=== PATIENT | male | born 1950 | race Hispanic/Latino ===

== ENCOUNTER 2021-05-25 01:45 | Inpatient (IN) | payer OTHER ==
[~2021-05-25] VITALS: Ht 180.3 cm; Wt 93.9 kg
[2021-05-25] MEDS ORDERED: SODIUM CHLORIDE 0.9% 1000ML 1,000 ML IV STA (01:54)
[2021-05-25] MEDS ORDERED: ONDANSETRON HCL INJ 2MG/ML 2ML 2 MG/ML VIAL IV STA (01:54)
[2021-05-25 02:59] LABS: BASOPHILS % 0.5 % (0.0-1.0); EOSINOPHILS # (AUTO) 0.1 (0.0-0.4); EOSINOPHILS % 0.7 % (0.0-6.0); HEMATOCRIT 37.4 % (38.2-49.6); HEMOGLOBIN 11.9 g/dL (14.0-18.0); LYMPHOCYTES # (AUTO) 0.6 (1.0-3.2); LYMPHOCYTES % 7.1 % (18.0-39.1); MEAN CORPUSCULAR HEMOGLOBIN 27.5 pg (28-32); MEAN CORPUSCULAR HGB CONC 31.8 g/dL (31-35); MEAN CORPUSCULAR VOLUME 86.6 fL (81-99); MONOCYTES # (AUTO) 0.5 (0.2-0.8); MONOCYTES % 5.4 % (4.4-11.3); NEUTROPHILS # (AUTO) 7.3 (2.1-6.9); NEUTROPHILS % 85.8 % (38.7-80.0); PLATELET COUNT 199 x10e3/uL (140-360); RED BLOOD COUNT 4.32 x10e6/uL (4.3-5.7); RED CELL DISTRIBUTION WIDTH 14.7 % (11.7-14.4)
[2021-05-25 03:17] LABS: ALBUMIN 3.7 g/dL (3.5-5.0); ALBUMIN/GLOBULIN RATIO 0.9 (0.8-2.0); ANION GAP 21.4 mmol/L (8-16); CALCIUM 10.2 mg/dL (8.4-10.2); CREATININE, SERUM 0.83 mg/dL (0.72-1.25); POTASSIUM 4.4 mmol/L (3.5-5.1)
[2021-05-25] MEDS ORDERED: MORPHINE SULFATE INJ 2 MG/ML SYR IV STA (03:17)
[2021-05-25 03:23] LABS: CREATINE KINASE MB 1.2 ng/mL (0-5.0)
[2021-05-25 03:40] LABS: CLARITY,URINE CLEAR (CLEAR); COLOR,URINE AMBER (YELLOW); KETONES,URINE >=160 (NEGATIVE); LEUKOCYTE ESTERASE ,URINE NEGATIVE (NEGATIVE); NITRITE,URINE NEGATIVE (NEGATIVE); PROTEIN,URINE DIPSTICK NEGATIVE (NEGATIVE); URINE UROBILINOGEN 1 mg/dL (0.2 - 1)
[2021-05-25 03:46] LABS: BACTERIA,URINE FEW /HPF; EPITHELIAL CELLS,URINE FEW /LPF; MUCUS,URINE FEW (RARE); RBC,URINE 0-5 /HPF (0-5)
[2021-05-25] MEDS ORDERED: D5.45%NS/KCL 20MEQ 1,000 ML IV SCH (04:30)
[2021-05-25] MEDS ORDERED: MORPHINE SULFATE INJ 2 MG/ML SYR IV PRN (04:30)
[2021-05-25] MEDS ORDERED: LEVOFLOXACIN 500MG/D5W 100ML IV SCH (04:30)
[2021-05-25] MEDS ORDERED: SODIUM CHLORIDE 0.9% 50ML 50 ML ONE ×3 (07:22→14:50)
[2021-05-25] MEDS ORDERED: IOPAMIDOL 370 MG/ML 200 ML INFUS..BTL INJ ONE (07:22)
[2021-05-25 08:55] VITALS: BP 188/65
[2021-05-25] MEDS ORDERED: ACETAMINOPHEN 1000 MG/100 ML IV PRN (09:00)
[2021-05-25] MEDS ORDERED: DEXTROSE 50% SYRINGE 50 ML IV PRN (09:00)
[2021-05-25] MEDS ORDERED: HYDRALAZINE HCL 20 MG/ML VIAL IV PRN (09:15)
[2021-05-25 09:21] VITALS: BP 188/65
[2021-05-25] MEDS ORDERED: INSULIN GLARGINE 100 UNITS/ML VIAL SQ ONE (09:30)
[2021-05-25] MEDS ORDERED: PIPERACILLIN/TAZOBACTAM 3.375 GM in SODIUM CHLORIDE 0.9% 50ML 50 ML IV SCH (10:00)
[2021-05-25] MEDS: ONDANSETRON HCL INJ 2MG/ML 2ML 2 MG/ML VIAL IV PRN ×2 (10:04→17:53)
[2021-05-25] MEDS: MORPHINE SULFATE INJ 4 MG/ML INJ 1ML IV PRN ×2 (10:04→17:53)
[2021-05-25] MEDS: SODIUM BICARBONATE 8.4% 50 ML in SODIUM CHLORIDE 0.45% 1,000 ML IV SCH (10:05)
[2021-05-25 11:41] VITALS: BP 159/66
[2021-05-25] MEDS: INSULIN LISPRO 100 UNIT/1 ML 3ML VIAL SQ SCH ×2 (12:00→16:41)
[2021-05-25] MEDS: PIPERACILLIN/TAZOBACTAM 3.375 GM in SODIUM CHLORIDE 0.9% 50ML 50 ML IV SCH ×2 (13:54→20:36)
[2021-05-25] MEDS ORDERED: GADOBENATE DIMEGLUMINE 0 ML IV ONE (14:00)
[2021-05-25] MEDS ORDERED: GADOBENATE DIMEGLUMINE 1 ML IV ONE (14:50)
[2021-05-25] MEDS ORDERED: AMLODIPINE BESYL5 MG PO (14:55)
[2021-05-25] MEDS ORDERED: BASAGLAR K100 UNIT/1 SQ (14:55)
[2021-05-25] MEDS ORDERED: ATORVASTATIN CA40 MG PO (14:55)
[2021-05-25] MEDS ORDERED: ASPIRIN EC81 MG PO (14:55)
[2021-05-25] MEDS ORDERED: METFORMIN HCL500 MG PO (15:05)
[2021-05-25] MEDS ORDERED: FISH OIL 1,0001 EA10 PO (15:05)
[2021-05-25] MEDS ORDERED: NOVOLOG MI100 UNIT/1 SC (15:05)
[2021-05-25] MEDS ORDERED: CARVEDILOL12.5 MG PO (15:05)
[2021-05-25] MEDS ORDERED: FINASTERIDE5 MG PO (15:05)
[2021-05-25] MEDS ORDERED: PROTONIX20 MG PO (15:06)
[2021-05-25] MEDS ORDERED: SERTRALINE HCL100 MG PO (15:14)
[2021-05-25] MEDS ORDERED: DIOVAN80 MG PO (15:14)
[2021-05-25] MEDS ORDERED: CALTRATE+D3 PL1 EACH PO (15:14)
[2021-05-25] MEDS ORDERED: VITAMIN B12 PO (15:14)
[2021-05-25] MEDS ORDERED: FLOMAX0.4 MG PO (15:14)
[2021-05-25] MEDS ORDERED: PIOGLITAZONE HC45 MG PO (15:14)
[2021-05-25 16:25] VITALS: BP 181/74
[2021-05-25 20:00] VITALS: BP 152/64
[2021-05-25] MEDS: INSULIN GLARGINE 100 UNITS/ML VIAL SQ SCH (20:39)
[2021-05-25 21:22] VITALS: BP 152/64
[2021-05-26] VITALS (8 sets, daily range): BP systolic 122–163; BP diastolic 59–79
[2021-05-26] MEDS: SODIUM BICARBONATE 8.4% 50 ML in SODIUM CHLORIDE 0.45% 1,000 ML IV SCH ×3 (00:07→16:32)
[2021-05-26] MEDS: MORPHINE SULFATE INJ 4 MG/ML INJ 1ML IV PRN ×3 (00:08→10:05)
[2021-05-26] MEDS: INSULIN LISPRO 100 UNIT/1 ML 3ML VIAL SQ SCH ×4 (00:09→18:12)
[2021-05-26] MEDS: PIPERACILLIN/TAZOBACTAM 3.375 GM in SODIUM CHLORIDE 0.9% 50ML 50 ML IV SCH ×4 (01:53→20:22)
[2021-05-26 05:21] LABS: BASOPHILS % 0.3 % (0.0-1.0); EOSINOPHILS % 0.2 % (0.0-6.0); HEMATOCRIT 37.3 % (38.2-49.6); HEMOGLOBIN 11.7 g/dL (14.0-18.0); LYMPHOCYTES # (AUTO) 0.8 (1.0-3.2); LYMPHOCYTES % 8.7 % (18.0-39.1); MEAN CORPUSCULAR HEMOGLOBIN 27.6 pg (28-32); MEAN CORPUSCULAR HGB CONC 31.4 g/dL (31-35); MONOCYTES # (AUTO) 0.9 (0.2-0.8); MONOCYTES % 9.8 % (4.4-11.3); NEUTROPHILS # (AUTO) 7.5 (2.1-6.9); NEUTROPHILS % 80.5 % (38.7-80.0); PLATELET COUNT 198 x10e3/uL (140-360); RED BLOOD COUNT 4.24 x10e6/uL (4.3-5.7); RED CELL DISTRIBUTION WIDTH 15.4 % (11.7-14.4)
[2021-05-26 06:04] LABS: ALBUMIN 3.2 g/dL (3.5-5.0); ALBUMIN/GLOBULIN RATIO 0.8 (0.8-2.0); ANION GAP 19.1 mmol/L (8-16); CALCIUM 9.9 mg/dL (8.4-10.2); CREATININE, SERUM 0.79 mg/dL (0.72-1.25); MAGNESIUM 1.7 MG/DL (1.3-2.1); PHOSPHORUS 2.1 MG/DL (2.3-4.7); POTASSIUM 4.1 mmol/L (3.5-5.1)
[2021-05-26 06:50] LABS: THYROID STIMULATING HORMONE 0.348 uIU/mL (0.350-4.940)
[2021-05-26] MEDS: SERTRALINE HCL 100 MG TAB PO SCH (08:29)
[2021-05-26] MEDS: CARVEDILOL 12.5 MG TAB PO SCH ×2 (09:57→16:02)
[2021-05-26] MEDS: AMLODIPINE BESYLATE 5 MG TAB PO SCH (09:57)
[2021-05-26] MEDS: FINASTERIDE 5 MG TAB PO SCH (09:57)
[2021-05-26] MEDS: VALSARTAN 160 MG TAB PO SCH (09:57)
[2021-05-26] MEDS: TAMSULOSIN HCL 0.4 MG CAP PO SCH (09:57)
[2021-05-26] MEDS: ONDANSETRON HCL INJ 2MG/ML 2ML 2 MG/ML VIAL IV PRN (10:05)
[2021-05-26 17:58] LABS: INR 0.93
[2021-05-26] MEDS: INSULIN GLARGINE 100 UNITS/ML VIAL SQ SCH (21:00)
[2021-05-26] MEDS ORDERED: SODIUM BICARBONATE 8.4% 50 ML in SODIUM CHLORIDE 0.45% 1,000 ML IV SCH (22:30)
[2021-05-27] VITALS (7 sets, daily range): BP systolic 116–143; BP diastolic 51–64
[2021-05-27] MEDS: PIPERACILLIN/TAZOBACTAM 3.375 GM in SODIUM CHLORIDE 0.9% 50ML 50 ML IV SCH ×4 (01:49→20:00)
[2021-05-27 06:19] LABS: BASOPHILS % 0.6 % (0.0-1.0); EOSINOPHILS # (AUTO) 0.1 (0.0-0.4); EOSINOPHILS % 2.3 % (0.0-6.0); HEMATOCRIT 31.1 % (38.2-49.6); HEMOGLOBIN 9.9 g/dL (14.0-18.0); LYMPHOCYTES % 19.4 % (18.0-39.1); MEAN CORPUSCULAR HEMOGLOBIN 27.2 pg (28-32); MEAN CORPUSCULAR HGB CONC 31.8 g/dL (31-35); MEAN CORPUSCULAR VOLUME 85.4 fL (81-99); MONOCYTES # (AUTO) 0.4 (0.2-0.8); MONOCYTES % 8.2 % (4.4-11.3); NEUTROPHILS # (AUTO) 3.5 (2.1-6.9); NEUTROPHILS % 69.1 % (38.7-80.0); PLATELET COUNT 162 x10e3/uL (140-360); RED BLOOD COUNT 3.64 x10e6/uL (4.3-5.7); RED CELL DISTRIBUTION WIDTH 15.6 % (11.7-14.4)
[2021-05-27 07:20] LABS: ALBUMIN 2.7 g/dL (3.5-5.0); ALBUMIN/GLOBULIN RATIO 0.8 (0.8-2.0); ANION GAP 13.4 mmol/L (8-16); CALCIUM 9.2 mg/dL (8.4-10.2); CREATININE, SERUM 0.67 mg/dL (0.72-1.25); POTASSIUM 3.4 mmol/L (3.5-5.1)
[2021-05-27] MEDS: INSULIN LISPRO 100 UNIT/1 ML 3ML VIAL SQ SCH ×5 (07:30→21:00)
[2021-05-27] MEDS: CARVEDILOL 12.5 MG TAB PO SCH ×2 (08:30→17:00)
[2021-05-27] MEDS: TAMSULOSIN HCL 0.4 MG CAP PO SCH (09:14)
[2021-05-27] MEDS: FINASTERIDE 5 MG TAB PO SCH (09:14)
[2021-05-27] MEDS: AMLODIPINE BESYLATE 5 MG TAB PO SCH (09:14)
[2021-05-27] MEDS: VALSARTAN 160 MG TAB PO SCH (09:14)
[2021-05-27] MEDS: SERTRALINE HCL 100 MG TAB PO SCH (09:14)
[2021-05-27] MEDS ORDERED: POTASSIUM CHLORIDE 10MEQ EA PO NR (10:00)
[2021-05-27] MEDS: ONDANSETRON HCL INJ 2MG/ML 2ML 2 MG/ML VIAL IV PRN (17:50)
[2021-05-27] MEDS: MORPHINE SULFATE INJ 4 MG/ML INJ 1ML IV PRN (17:50)
[2021-05-27] MEDS: INSULIN GLARGINE 100 UNITS/ML VIAL SQ SCH (21:44)
[2021-05-27] MEDS ORDERED: SODIUM CHLORIDE 0.9% 250ML 250 ML ONE (22:56)
[2021-05-28] VITALS (7 sets, daily range): BP systolic 136–147; BP diastolic 56–69
[2021-05-28] MEDS: PIPERACILLIN/TAZOBACTAM 3.375 GM in SODIUM CHLORIDE 0.9% 50ML 50 ML IV SCH ×4 (02:30→20:00)
[2021-05-28 06:43] LABS: ALBUMIN 2.7 g/dL (3.5-5.0); ALBUMIN/GLOBULIN RATIO 0.8 (0.8-2.0); ANION GAP 13.8 mmol/L (8-16); CALCIUM 9.2 mg/dL (8.4-10.2); CREATININE, SERUM 0.72 mg/dL (0.72-1.25); POTASSIUM 3.8 mmol/L (3.5-5.1)
[2021-05-28] MEDS: INSULIN LISPRO 100 UNIT/1 ML 3ML VIAL SQ SCH ×4 (07:30→21:00)
[2021-05-28] MEDS: CARVEDILOL 12.5 MG TAB PO SCH ×2 (08:15→17:39)
[2021-05-28] MEDS: VALSARTAN 160 MG TAB PO SCH (08:56)
[2021-05-28] MEDS: TAMSULOSIN HCL 0.4 MG CAP PO SCH (08:56)
[2021-05-28] MEDS: SERTRALINE HCL 100 MG TAB PO SCH (08:56)
[2021-05-28] MEDS: FINASTERIDE 5 MG TAB PO SCH (08:56)
[2021-05-28] MEDS: AMLODIPINE BESYLATE 5 MG TAB PO SCH (08:56)
[2021-05-28] MEDS: INSULIN GLARGINE 100 UNITS/ML VIAL SQ SCH (21:43)
[2021-05-29] VITALS (7 sets, daily range): BP systolic 131–158; BP diastolic 56–66
[2021-05-29] MEDS: PIPERACILLIN/TAZOBACTAM 3.375 GM in SODIUM CHLORIDE 0.9% 50ML 50 ML IV SCH ×4 (02:17→20:45)
[2021-05-29] MEDS: INSULIN LISPRO 100 UNIT/1 ML 3ML VIAL SQ SCH ×3 (07:30→16:20)
[2021-05-29] MEDS: CARVEDILOL 12.5 MG TAB PO SCH ×2 (07:41→20:47)
[2021-05-29] MEDS: TAMSULOSIN HCL 0.4 MG CAP PO SCH (09:22)
[2021-05-29] MEDS: FINASTERIDE 5 MG TAB PO SCH (09:23)
[2021-05-29] MEDS: VALSARTAN 160 MG TAB PO SCH (09:23)
[2021-05-29] MEDS: AMLODIPINE BESYLATE 5 MG TAB PO SCH (09:23)
[2021-05-29] MEDS: SERTRALINE HCL 100 MG TAB PO SCH (09:23)
[2021-05-29] MEDS ORDERED: MIDAZOLAM HCL 2 MG/2 ML VIAL ONE (11:31)
[2021-05-29] MEDS ORDERED: FENTANYL CITRATE/PF 100MCG/2 ML INJ ONE (11:32)
[2021-05-29] MEDS: INSULIN GLARGINE 100 UNITS/ML VIAL SQ SCH (21:00)
[2021-05-30] VITALS (8 sets, daily range): BP systolic 110–152; BP diastolic 53–78
[2021-05-30] MEDS: PIPERACILLIN/TAZOBACTAM 3.375 GM in SODIUM CHLORIDE 0.9% 50ML 50 ML IV SCH ×4 (03:35→20:53)
[2021-05-30] MEDS: INSULIN LISPRO 100 UNIT/1 ML 3ML VIAL SQ SCH ×5 (03:43→20:53)
[2021-05-30 05:20] LABS: BASOPHILS % 0.7 % (0.0-1.0); EOSINOPHILS # (AUTO) 0.3 (0.0-0.4); EOSINOPHILS % 5.7 % (0.0-6.0); HEMOGLOBIN 10.2 g/dL (14.0-18.0); LYMPHOCYTES # (AUTO) 1.1 (1.0-3.2); LYMPHOCYTES % 19.9 % (18.0-39.1); MEAN CORPUSCULAR HEMOGLOBIN 27.3 pg (28-32); MEAN CORPUSCULAR HGB CONC 31.9 g/dL (31-35); MEAN CORPUSCULAR VOLUME 85.6 fL (81-99); MONOCYTES # (AUTO) 0.4 (0.2-0.8); MONOCYTES % 7.8 % (4.4-11.3); NEUTROPHILS # (AUTO) 3.7 (2.1-6.9); NEUTROPHILS % 65.5 % (38.7-80.0); PLATELET COUNT 199 x10e3/uL (140-360); RED BLOOD COUNT 3.74 x10e6/uL (4.3-5.7)
[2021-05-30] MEDS: CARVEDILOL 12.5 MG TAB PO SCH ×2 (08:19→17:00)
[2021-05-30] MEDS: AMLODIPINE BESYLATE 5 MG TAB PO SCH (08:47)
[2021-05-30] MEDS: FINASTERIDE 5 MG TAB PO SCH (08:47)
[2021-05-30] MEDS: SERTRALINE HCL 100 MG TAB PO SCH (08:47)
[2021-05-30] MEDS: TAMSULOSIN HCL 0.4 MG CAP PO SCH (08:47)
[2021-05-30] MEDS: VALSARTAN 160 MG TAB PO SCH (08:55)
[2021-05-30] MEDS ORDERED: GADOBENATE DIMEGLUMINE 1 ML IV ONE (10:00)
[2021-05-30] MEDS ORDERED: SODIUM CHLORIDE 0.9% 50ML 50 ML ONE ×2 (10:00→19:42)
[2021-05-30] MEDS ORDERED: IOPAMIDOL 370 MG/ML 200 ML INFUS..BTL INJ ONE (19:42)
[2021-05-30] MEDS: INSULIN GLARGINE 100 UNITS/ML VIAL SQ SCH (20:53)
[2021-05-31] VITALS: BP 147/63
[2021-05-31] MEDS: PIPERACILLIN/TAZOBACTAM 3.375 GM in SODIUM CHLORIDE 0.9% 50ML 50 ML IV SCH ×4 (02:00→20:47)
[2021-05-31 04:00] VITALS: BP 169/72
[2021-05-31 04:47] LABS: BASOPHILS % 0.6 % (0.0-1.0); EOSINOPHILS # (AUTO) 0.3 (0.0-0.4); EOSINOPHILS % 5.3 % (0.0-6.0); HEMATOCRIT 32.6 % (38.2-49.6); HEMOGLOBIN 9.7 g/dL (14.0-18.0); LYMPHOCYTES # (AUTO) 1.1 (1.0-3.2); LYMPHOCYTES % 16.3 % (18.0-39.1); MEAN CORPUSCULAR HEMOGLOBIN 25.2 pg (28-32); MEAN CORPUSCULAR HGB CONC 29.8 g/dL (31-35); MEAN CORPUSCULAR VOLUME 84.7 fL (81-99); MONOCYTES # (AUTO) 0.5 (0.2-0.8); MONOCYTES % 7.8 % (4.4-11.3); NEUTROPHILS # (AUTO) 4.5 (2.1-6.9); NEUTROPHILS % 69.7 % (38.7-80.0); PLATELET COUNT 189 x10e3/uL (140-360); RED BLOOD COUNT 3.85 x10e6/uL (4.3-5.7)
[2021-05-31 04:58] LABS: INR 0.9; PARTIAL THROMBOPLASTIN TIME 28.6 seconds (23.8-35.5); PROTHROMBIN TIME 12.7 seconds (11.9-14.5)
[2021-05-31 05:10] LABS: ALBUMIN 2.9 g/dL (3.5-5.0); ALBUMIN/GLOBULIN RATIO 0.8 (0.8-2.0); ANION GAP 13.9 mmol/L (8-16); CALCIUM 9.3 mg/dL (8.4-10.2); CREATININE, SERUM 0.71 mg/dL (0.72-1.25); POTASSIUM 3.9 mmol/L (3.5-5.1)
[2021-05-31] MEDS: INSULIN LISPRO 100 UNIT/1 ML 3ML VIAL SQ SCH ×4 (07:30→20:47)
[2021-05-31] MEDS: PANTOPRAZOLE SOD 40 MG TABEC PO SCH ×2 (07:30→16:22)
[2021-05-31 07:43] VITALS: BP 138/51
[2021-05-31] MEDS: CARVEDILOL 12.5 MG TAB PO SCH ×2 (08:00→16:22)
[2021-05-31] MEDS ORDERED: GADOBENATE DIMEGLUMINE 1 ML IV ONE (08:30)
[2021-05-31 08:46] VITALS: BP 138/51
[2021-05-31] MEDS: AMLODIPINE BESYLATE 5 MG TAB PO SCH (09:00)
[2021-05-31] MEDS: VALSARTAN 160 MG TAB PO SCH (09:00)
[2021-05-31 11:05] VITALS: BP 128/42
[2021-05-31] MEDS: FINASTERIDE 5 MG TAB PO SCH (15:09)
[2021-05-31] MEDS: TAMSULOSIN HCL 0.4 MG CAP PO SCH (15:09)
[2021-05-31] MEDS: SERTRALINE HCL 100 MG TAB PO SCH (15:09)
[2021-05-31 20:00] VITALS: BP 137/51
[2021-05-31] MEDS ORDERED: PANTOPRAZOLE SOD 40 MG TABEC PO ONE (20:30)
[2021-05-31] MEDS: INSULIN GLARGINE 100 UNITS/ML VIAL SQ SCH (20:48)
[2021-05-31] MEDS: MAALOX/LIDOCAINE/BENADRYL/NYST 30 ML BTL PO PRN ×2 (20:56→22:35)
[2021-05-31] MEDS ORDERED: MAGNESIUM/ALUMINUM/SIMETHICONE 30 ML UDC ONE (21:56)
[2021-05-31] MEDS ORDERED: NYSTATIN SUSPENSION 5 ML UDC ONE ×3 (21:57→22:31)
[2021-06-01] VITALS (9 sets, daily range): BP systolic 109–138; BP diastolic 55–63
[2021-06-01] MEDS: PIPERACILLIN/TAZOBACTAM 3.375 GM in SODIUM CHLORIDE 0.9% 50ML 50 ML IV SCH ×4 (01:39→21:00)
[2021-06-01] MEDS: INSULIN LISPRO 100 UNIT/1 ML 3ML VIAL SQ SCH ×4 (07:30→21:01)
[2021-06-01] MEDS: CARVEDILOL 12.5 MG TAB PO SCH ×2 (08:00→16:43)
[2021-06-01] MEDS ORDERED: FENTANYL CITRATE/PF 100MCG/2 ML INJ ONE (10:16)
[2021-06-01] MEDS ORDERED: MIDAZOLAM HCL 2 MG/2 ML VIAL ONE (10:17)
[2021-06-01] MEDS: MAALOX/LIDOCAINE/BENADRYL/NYST 30 ML BTL PO PRN (13:52)
[2021-06-01] MEDS: PANTOPRAZOLE SOD 40 MG TABEC PO SCH (15:19)
[2021-06-01] MEDS: SERTRALINE HCL 100 MG TAB PO SCH (15:43)
[2021-06-01] MEDS: AMLODIPINE BESYLATE 5 MG TAB PO SCH (15:43)
[2021-06-01] MEDS: TAMSULOSIN HCL 0.4 MG CAP PO SCH (15:43)
[2021-06-01] MEDS: FINASTERIDE 5 MG TAB PO SCH (15:43)
[2021-06-01] MEDS: VALSARTAN 160 MG TAB PO SCH (15:43)
[2021-06-01] MEDS: INSULIN GLARGINE 100 UNITS/ML VIAL SQ SCH (21:01)
[2021-06-02 00:17] VITALS: BP 134/63
[2021-06-02] MEDS: PIPERACILLIN/TAZOBACTAM 3.375 GM in SODIUM CHLORIDE 0.9% 50ML 50 ML IV SCH ×2 (01:21→08:27)
[2021-06-02 05:03] LABS: BASOPHILS % 0.6 % (0.0-1.0); EOSINOPHILS # (AUTO) 0.3 (0.0-0.4); EOSINOPHILS % 4.8 % (0.0-6.0); HEMATOCRIT 32.9 % (38.2-49.6); HEMOGLOBIN 10.5 g/dL (14.0-18.0); LYMPHOCYTES % 19.3 % (18.0-39.1); MEAN CORPUSCULAR HEMOGLOBIN 27.5 pg (28-32); MEAN CORPUSCULAR HGB CONC 31.9 g/dL (31-35); MEAN CORPUSCULAR VOLUME 86.1 fL (81-99); MONOCYTES # (AUTO) 0.4 (0.2-0.8); MONOCYTES % 8.5 % (4.4-11.3); NEUTROPHILS # (AUTO) 3.4 (2.1-6.9); NEUTROPHILS % 66.4 % (38.7-80.0); PLATELET COUNT 214 x10e3/uL (140-360); RED BLOOD COUNT 3.82 x10e6/uL (4.3-5.7); RED CELL DISTRIBUTION WIDTH 15.5 % (11.7-14.4)
[2021-06-02 05:31] LABS: ALBUMIN/GLOBULIN RATIO 0.8 (0.8-2.0); CALCIUM 9.4 mg/dL (8.4-10.2); CREATININE, SERUM 0.79 mg/dL (0.72-1.25)
[2021-06-02 06:16] VITALS: BP 151/68
[2021-06-02] MEDS: INSULIN LISPRO 100 UNIT/1 ML 3ML VIAL SQ SCH (07:30)
[2021-06-02 07:49] VITALS: BP 151/62
[2021-06-02] MEDS: PANTOPRAZOLE SOD 40 MG TABEC PO SCH (08:27)
[2021-06-02] MEDS: TAMSULOSIN HCL 0.4 MG CAP PO SCH (08:27)
[2021-06-02] MEDS: CARVEDILOL 12.5 MG TAB PO SCH (08:27)
[2021-06-02] MEDS: VALSARTAN 160 MG TAB PO SCH (08:27)
[2021-06-02] MEDS: SERTRALINE HCL 100 MG TAB PO SCH (08:27)
[2021-06-02] MEDS: FINASTERIDE 5 MG TAB PO SCH (08:27)
[2021-06-02] MEDS: AMLODIPINE BESYLATE 5 MG TAB PO SCH (08:27)
[2021-06-02 08:28] VITALS: BP 151/62
== END 2021-06-02 11:15 | disposition home or self-care (01) | DRG 435 ==
LOC: ER 02:15 → ERHOLD 04:24 → MED/SURG 08:49
PROVIDERS: ADMIT Internal Medicine; ATTEND Internal Medicine
PROC: 0FB13ZX Excision of Right Lobe Liver, Percutaneous Approach, Diagnostic (ICD-10-PCS; principal; 2021-06-01)
PROC: 0F913ZX Drainage of Right Lobe Liver, Percutaneous Approach, Diagnostic (ICD-10-PCS; 2021-06-01)
DX: C22.0 Liver cell carcinoma (principal); K72.00 Acute and subacute hepatic failure without coma; K80.00 Calculus of gallbladder with acute cholecystitis without obstruction; C78.7 Secondary malignant neoplasm of liver and intrahepatic bile duct; I10 Essential (primary) hypertension; J44.9 Chronic obstructive pulmonary disease, unspecified; I25.10 Atherosclerotic heart disease of native coronary artery without angina pectoris; Z86.73 Personal history of transient ischemic attack (TIA), and cerebral infarction without residual deficits; Z79.4 Long term (current) use of insulin; Z95.5 Presence of coronary angioplasty implant and graft; E11.42 Type 2 diabetes mellitus with diabetic polyneuropathy; E78.5 Hyperlipidemia, unspecified; H02.402 Unspecified ptosis of left eyelid
CPT/HCPCS: 10009; 36415; 47000; 70553; 71260; 74177; 74183; 74470; 76705; 76942; 78227; 80053; 81001; 82105; 82248; 82550; 82552; 82553; 82948; 83036; 83605; 83690; 83735; 84100; 84295; 84443; 84484; 85025; 85610; 85730; 87040; 88112; 88172; 88173; 88305; 88307; 88313; 88342; 96367; 96372; 99152; 99153; 99251; 99284; A9537; J0360; J1815; J1956; J2250; J2270; J2405; J2543; J3010; J7030; J7050; Q9967